=== PATIENT | female | born 1995 | race Hispanic/Latino ===

== ENCOUNTER 2023-10-22 13:50 | Outpatient (CLI) | payer OTHER | END 2023-10-22 16:08 | disposition home or self-care (01) | LOC: PRENATAL 13:50 | PROVIDERS: ATTEND Obstetrics & Gynecology Maternal & Fetal Medicine | DX: O36.80X0 Pregnancy with inconclusive fetal viability, not applicable or unspecified (principal); Z36.82 Encounter for antenatal screening for nuchal translucency; Z3A.12 12 weeks gestation of pregnancy ==

== ENCOUNTER 2023-12-17 13:25 | Outpatient (CLI) | payer OTHER | END 2023-12-17 13:27 | disposition home or self-care (01) | LOC: PRENATAL 13:25 | PROVIDERS: ATTEND Obstetrics & Gynecology Maternal & Fetal Medicine | DX: O26.843 Uterine size-date discrepancy, third trimester (principal); O36.0930 Maternal care for other rhesus isoimmunization, third trimester, not applicable or unspecified; Z3A.28 28 weeks gestation of pregnancy ==

== ENCOUNTER 2024-03-10 13:16 | Outpatient (CLI) | payer OTHER | END 2024-03-10 13:19 | disposition home or self-care (01) | LOC: PRENATAL 13:16 | PROVIDERS: ATTEND Obstetrics & Gynecology Maternal & Fetal Medicine | DX: O26.849 Uterine size-date discrepancy, unspecified trimester (principal); O36.8199 Decreased fetal movements, unspecified trimester, other fetus; Z3A.33 33 weeks gestation of pregnancy ==

== ENCOUNTER 2024-04-12 14:30 | Inpatient (IN) | payer OTHER ==
[~2024-04-12] VITALS: Ht 170.2 cm; Wt 79.4 kg
[2024-04-21 17:00] VITALS: BP 137/83
[2024-04-21] MEDS ORDERED: RINGERS SOLUTION,LACTATED 1,000 ML IV SCH (17:30)
[2024-04-21] MEDS ORDERED: PROMETHAZINE HCL 25 MG/ML AMPUL IV SCH (18:00)
[2024-04-21] MEDS ORDERED: MEPERIDINE HCL/PF 25 MG/ML VIAL IV SCH (18:00)
[2024-04-21 18:05] LABS: HEMATOCRIT 39.4 % (36.0-45.00); HEMOGLOBIN 13.9 g/dL (12.0-15.00); MEAN CELL VOLUME 93.3 fL (80.00-100.00); MEAN CORPUSCULAR HEMOGLOBIN 32.9 pg (27.00-32.0); MEAN CORPUSCULAR HGB CONC 35.2 g/dl (32.0-36.0); PLATELET COUNT 156 K/uL (150-450); RED BLOOD COUNT 4.22 M/uL (4.00-6.00); RED CELL DISTRIBUTION WIDTH 13.1 % (11.5-14.5)
[2024-04-21] MEDS ORDERED: PRENATAL TABLE1 EAC1 (18:06)
[2024-04-21 18:24] LABS: INR < 0.93; PARTIAL THROMBOPLASTIN TIME 24.5 SECONDS (22.0-34.0); PROTHROMBIN TIME 9.9 SECONDS (9.0-11.5)
[2024-04-21 18:32] LABS: ALBUMIN 2.8 gm/dL (3.4-5.0); BILIRUBIN TOTAL 0.29 mg/dL (0.3-1.2); CALCIUM 8.9 mg/dL (8.5-10.1); CREATININE SERUM 0.66 mg/dL (0.55-1.02); GFR 106.64; GLOBULINA 3.3 G/DL (2.4-3.5); POTASSIUM 4.09 mEq/L (3.5-5.1); TOTAL PROTEIN 6.1 gm/dL (6.4-8.2)
[2024-04-21] MEDS ORDERED: ONDANSETRON HCL 2 MG/ML VIAL IV ONE (18:45)
[2024-04-21 20:31] VITALS: BP 103/70
[2024-04-21] MEDS ORDERED: OXYTOCIN 20 UNITS/500ML RL PIGGYBAG IV ONE (21:00)
[2024-04-22 00:15] VITALS: BP 134/58
[2024-04-22] MEDS ORDERED: IBUprofen 400 MG TABLET PO SCH (00:43)
[2024-04-22] MEDS ORDERED: DOCUSATE SODIUM 100MG CAP PO SCH (00:44)
[2024-04-22] MEDS ORDERED: CHLORHEXIDINE GLUCONATE 120 ML BOTTLE TOP SCH (00:45)
[2024-04-22] MEDS ORDERED: BENZOCAINE/MENTHOL 90 ML BOTTLE TOP SCH ×2 (00:45→13:00)
[2024-04-22] MEDS ORDERED: OXYTOCIN 1,000 ML IV SCH (00:45)
[2024-04-22] MEDS ORDERED: LIDOCAINE HCL 1% 10ML VIAL IJ ONE (01:00)
[2024-04-22] MEDS ORDERED: ERYTHROMYCIN BASE OPHT 1GM EACH TUBE OP ONE (01:00)
[2024-04-22 02:36] VITALS: BP 123/67
[2024-04-22 08:27] VITALS: BP 121/60
[2024-04-22 10:15] LABS: HEMATOCRIT 37.9 % (36.0-45.00); MEAN CELL VOLUME 95.7 fL (80.00-100.00); MEAN CORPUSCULAR HEMOGLOBIN 32.7 pg (27.00-32.0); MEAN CORPUSCULAR HGB CONC 34.2 g/dl (32.0-36.0); PLATELET COUNT 145 K/uL (150-450); RED BLOOD COUNT 3.96 M/uL (4.00-6.00)
[2024-04-22] MEDS ORDERED: IBUprofen 800 MG TABLET PO PRN (13:00)
[2024-04-22 15:41] VITALS: BP 118/76
[2024-04-22] MEDS ORDERED: HYDROCORTISONE 2.5% 30 GM TUBE RECTAL SCH (18:30)
[2024-04-23 00:52] VITALS: BP 138/87
[2024-04-23 08:05] VITALS: BP 117/76
[2024-04-23] MEDS ORDERED: HYDROCORTISONE 2.5% 30 GM TUBE RECTAL SCH (09:00)
[2024-04-23 15:10] VITALS: BP 123/82
== END 2024-04-23 20:24 | disposition home or self-care (01) | DRG 807 ==
LOC: LDR 04-21 17:16 → OB/GYN 04-22 01:49 → LDR 05-03 14:30
PROVIDERS: ADMIT Obstetrics & Gynecology; ATTEND Obstetrics & Gynecology
PROC: 10E0XZZ Delivery of Products of Conception, External Approach (ICD-10-PCS; principal; 2024-04-21)
PROC: 0KQM0ZZ Repair Perineum Muscle, Open Approach (ICD-10-PCS; 2024-04-21)
PROC: 0W8NXZZ Division of Female Perineum, External Approach (ICD-10-PCS; 2024-04-21)
PROC: 4A1HXCZ Monitoring of Products of Conception, Cardiac Rate, External Approach (ICD-10-PCS; 2024-04-21)
DX: O70.1 Second degree perineal laceration during delivery (principal); Z37.0 Single live birth; Z3A.38 38 weeks gestation of pregnancy; Z20.822 Contact with and (suspected) exposure to COVID-19